=== PATIENT | female | born 1965 | race African-American/Black ===

== ENCOUNTER 2020-03-20 10:06 | Emergency (ER) | payer OTHER, SELFPAY ==
[2020-03-20 10:21] VITALS: BP 138/81; PULSE 79; RESP 16; TEMP 36.2; O2SAT 99
--- NOTE | 2020-03-20 10:29 | ED.GENADULT ---
HPI - General Adult General Chief complaint: Nausea/Vomiting/Diarrhea Stated complaint: abd pain/vomiting/diarrhea Time Seen by Provider: 03/20/20 10:34 Source: patient Mode of arrival: ambulatory Limitations: no limitations History of Present Illness HPI narrative: 54-year-old female patient presents to the [facility] with complaints of nausea vomiting and diarrhea that started yesterday. Patient states that she is a diabetic but is not insulin-dependent. Patient states that she threw up last night and was not able to keep any of her dinner down last night and this morning she tried to eat some oatmeal and threw that back up this morning as well. Patient states she has been belching a lot. Denies any abdominal pain. Denies any fevers. Patient states she has had a little bit of diarrhea as well. Patient denies any coughing or shortness of breath. Patient states that she has had issues with acid reflux before in the past and did have an endoscopy back in September and was prescribed omeprazole. Patient states that she ran out of refills so she stopped taking it. Patient states that she did take her sugars yesterday and it was 104 110 but denies taking her sugar today. Related Data Home Medications Medication Instructions Recorded Confirmed blood sugar diagnostic [OneTouch 03/20/20 03/20/20 Ultra Blue Test Strip] empagliflozin [Jardiance] mg 03/20/20 metformin mg 03/20/20 omeprazole 03/20/20 paroxetine HCl mg PO 03/20/20 progesterone micronized mg 03/20/20 rosuvastatin mg 03/20/20 Allergies Allergy/AdvReac Type Severity Reaction Status Date / Time naproxen Allergy Rash Verified 03/20/20 10:39 Review of Systems Review of Systems: Narrative: CONSTITUTIONAL: Denies fever, chills, or sweats. EYES: Denies visual changes, redness, or discharge. ENT: Denies rhinorrhea, congestion, sore throat, or otalgia. CARDIOVASCULAR: Denies chest pain, palpitations, or edema. Positive belching RESPIRATORY: Denies cough or dyspnea. GASTROINTESTINAL: Denies abdominal pain, positive nausea, vomiting, and diarrhea. GENITOURINARY: Denies dysuria or hematuria. SKIN: Denies rash or itching. MUSCULOSKELETAL: Denies back pain, joint pain, or myalgia. NEUROLOGIC: Denies headache, numbness, positive dizziness and weakness. PSYCHIATRIC: Denies anxiety or depression. PMFSH Comments At the time of my signature I agree with nursing past medical history, surgical, social, and family history. There is no relevant family history pertinent to the presenting complaint. Exam Narrative: Exam Narrative: GENERAL: Well-appearing, well-nourished, and in no acute distress. HEAD: Normocephalic, atraumatic. No tenderness noted to frontal maxillary sinuses on palpation EYES: PERRLA and EOMI. ENT: Nares clear, no rhinorrhea or epistaxis. Mucous membranes moist. Posterior pharynx with no erythema, tonsil nausea, exudates or lesions present. Bilateral TMs are clear no erythema or foreign bodies in the canal. NECK: Supple. No lymphadenopathy CHEST: Clear to auscultation. No respiratory distress. Patient able talk in clear complete sentences. No tripoding noted. HEART: Regular rate and rhythm. No murmur heard. Normal peripheral pulses. ABDOMEN: Soft, flat, nondistended. No guarding, rebound tenderness, or rigid. No pulsatilla masses. Bowel sounds present in all four quadrants. No organomegaly. Negative Cantu?s sign. No periumbicial tenderness. No Supra public tenderness or distension. Good femoral pulses bilaterally. No hernia noted. No scars or surface trauma. EXTREMITIES: Normal range of motion. No edema. SKIN: Warm, dry, no rash. NEURO: No focal deficits. Alert and oriented x3. Course Reevaluation(s) Reevaluation #1: Reevaluated patient after her urine dip had resulted. Discussed with her that her urine dip does show good amount of glucose as well as ketones in the urine which is concerning to me given her symptoms as well as her history of diabetes t
[2020-03-20 10:39] LABS: Glucose Point of Care 142 (65-105)
--- NOTE | 2020-03-20 10:46 | PC.NURSE ---
blood sugar 142. UA completed
[2020-03-20] MEDS: ONDANSETRON HCL ODT 4 MG TABLET PO (10:49)
== END 2020-03-20 11:02 | disposition short-term general hospital (02) ==
PROVIDERS: Emergency Provider Nurse Practitioner Family
DX: R11.2 Nausea with vomiting, unspecified (principal); E11.9 Type 2 diabetes mellitus without complications; Z79.84 Long term (current) use of oral hypoglycemic drugs
CPT/HCPCS: 81003; 99213; A9270; G0463

== ENCOUNTER 2020-03-20 11:17 | Emergency (ER) | payer OTHER, SELFPAY ==
--- NOTE | ~2020-03-20 | XR_ITS ---
EXAMINATION: XR abdomen obstructive series DATE: 03/20/2020 14:17 INDICATION: Vomiting TECHNIQUE: Upright and supine views of the abdomen were obtained. COMPARISON: None. FINDINGS: The bowel gas pattern is normal. There are no dilated loops of bowel. There is no free intr aperitoneal gas. The visualized lung bases are clear. IMPRESSION: 1. Nonobstructive bowel gas pattern Reviewed, dictated and finalized at location A.
[2020-03-20 11:26] VITALS: BP 148/82; PULSE 79; RESP 12; TEMP 36.4; O2SAT 100
[2020-03-20 11:34] LABS: Glucose Point of Care 125 (65-105)
--- NOTE | 2020-03-20 11:37 | ED.NAVMDI ---
HPI - Nausea/Vomiting/Diarrhea General Chief complaint: Nausea/Vomiting/Diarrhea Stated complaint: hyperglycemia Time Seen by Provider: 03/20/20 11:19 Source: RN notes reviewed History of Present Illness HPI Narrative: Patient presents to emergency department from urgent care for nausea vomiting diarrhea. Patient states symptoms began yesterday afternoon. States she is had several episodes of vomiting last night as well as this morning as well as 5 episodes of diarrhea yesterday and one episode this morning.. States she is a diabetic and had been concerned secondary to her diabetes. She gone to the urgent care today and was referred to the ER after a urine dip that showed ketones. Patient was given Zofran 4 mg at the urgent care. She denies any fevers or chills rhinorrhea sore throat cough shortness of breath abdominal pain or any other symptoms Related Data Home Medications Medication Instructions Recorded Confirmed blood sugar diagnostic [OneTouch 03/20/20 03/20/20 Ultra Blue Test Strip] empagliflozin [Jardiance] mg 03/20/20 metformin mg 03/20/20 omeprazole 03/20/20 paroxetine HCl mg PO 03/20/20 progesterone micronized mg 03/20/20 rosuvastatin mg 03/20/20 Allergies Allergy/AdvReac Type Severity Reaction Status Date / Time naproxen Allergy Rash Verified 03/20/20 10:39 Review of Systems Review of Systems: Narrative: Gen.: Denies fevers or chills ENT: Denies congestion Respiratory: Denies shortness of breath or cough CV: Denies chest pain or palpitations GI: Denies abdominal pain reports nausea, emesis or diarrhea denies burning, urgency, frequency or hematuria Musculoskeletal: Denies back pain or muscle pain Neuro: Denies numbness, tingling, weakness or focal weakness Skin: Denies rash Except as documented, all other systems reviewed and negative [facility] Past Medical History Medical History (Updated 03/20/20 @ 15:20 by Lukasz Ross DO) Diabetes mellitus Social History Social History (Updated 03/20/20 @ 11:38 by Lukasz Ross DO) Smoking status: Never smoker Gender identity (if verbalized by the patient): Female Exam Narrative: Exam Narrative: APPEARANCE: No acute distress, nontoxic, resting in bed EYES: EOMI HEENT: Normocephalic, atraumatic, TMs clear bilaterally, nares patent oral mucosa dry Neck: Supple, full range of motion without pain, no meningismus RESPIRATORY: No respiratory distress Clear to auscultation bilaterally with no rhonchi wheezing or rales. CARDIOVASCULAR: Regular rate and rhythm without murmurs rubs or gallops. ABDOMINAL: Soft, nontender, nondistended, no rebound or guarding MUSCULOSKELETAl: Moves all extremities. No clubbing, cyanosis or edema. NEURO: Awake and alert. Following commands, speech normal, no focal deficits SKIN:: Warm, dry. No rashes lesions or abrasions PSYCHIATRIC: Normal affect/mood, Course Course Emergency Course: Patient does complain of headache at this time states she is allergic to naproxen but can take ibuprofen Patient states she is feeling better at this time Discussed with patient results of workup and diagnosis. Discussed need for follow-up with primary care, proper use of medication, and reasons to return to the emergency department. Patient understands and agrees to current treatment plan Vital Signs Vital signs: Vital Signs Temperature 97.5 F L 03/20/20 11:26 Pulse Rate 79 03/20/20 11:26 Respiratory Rate 12 03/20/20 11:26 Blood Pressure 148/82 H 03/20/20 11:26 Pulse Oximetry 100 03/20/20 11:26 Temperature 97.5 F L 03/20/20 11:26 Pulse Rate 79 03/20/20 11:26 Respiratory Rate 12 03/20/20 11:26 Blood Pressure 148/82 H 03/20/20 11:26 Pulse Oximetry 100 03/20/20 11:26 MDM - Nausea/Vomiting/Diarrhea Lab Data Result diagrams: 03/20/20 11:45 03/20/20 13:15 Labs: Lab Results 03/20/20 03/20/20 03/20/20 Range/Units 11:25 11:45 11:45 WBC 8.3 (4.5-10.
[2020-03-20] MEDS: SODIUM CHLORIDE 0.9% IV 1,000 ML 999 ML IV CONT ×2 (11:44→13:12)
[2020-03-20 11:57] LABS: Basophils Absolute Auto 0.1 K/mm3 (0.0-0.1); Basophils Percent Auto 0.6 % (0.2-1.2); Eosinophils Percent Auto 0.2 % (0-4.4); Hematocrit 47.9 % (37.0-47.0); Immature Granulocyte Absolute 0.01 K/mm3 (0.00-0.031); Immature Granulocyte Percent A 0.1 % (0-0.5); Lymphocytes Absolute Auto 1.96 K/mm3 (0.9-3.2); Lymphocytes Percent Auto 23.7 % (18.3-44.2); Mean Corpuscular HGB Conc 31.3 g/dl (32-36); Mean Corpuscular Hemoglobin 27.5 pg (26-34); Mean Corpuscular Volume 87.9 fl (80-100); Mean Platelet Volume 12.2 fl (7.4-10.4); Monocytes Absolute Auto 0.3 K/mm3 (0.1-0.6); Monocytes Percent Auto 3.7 % (2.6-8.5); Neutrophils Absolute Auto 5.9 K/mm3 (1.3-6.7); Neutrophils Percent Auto 71.7 % (45.5-73.1); Platelet Count Result 245 k/mm3 (150-375); Red Blood Count 5.45 M/mm3 (4.2-5.4); Red Cell Distribution Width 13.1 % (11.5-14.5); White Blood Count 8.3 K/mm3 (4.5-10.0)
[2020-03-20 12:03] LABS: Add Urine Microscopic? YES; Appearance Urine Clear (Clear); Bilirubin Urine Negative (Negative); Blood Urine 1+ (Negative); Color Urine Straw (Yellow); Glucose Urine UA 3+ mg/dL (Negative); Ketones Urine 1+ mg/dL (Negative); Leukocyte Esterase Ur Negative LEU/UL (Negative); Mucus Urine Rare /lpf; Nitrate Urine Negative (Negative); Protein Urine Negative (Negative); RBC Urine 0-2 /hpf (0-2); Specific Grav Ur 1.032 (1.001-1.035); Squamous Epithelial Cell Urine Few /hpf (Few); Urobilinogen Urine Negative mg/dL (<2.0); WBC Urine 0-3 /hpf
[2020-03-20 13:36] LABS: Alanine Aminotransferase 15 U/L (4-35); Albumin Level 4.2 g/dL (3.5-5.1); Alkaline Phosphatase 71 U/L (38-126); Aspartate Amino Transferase 22 U/L (14-36); Bilirubin,Total 0.3 mg/dL (0.2-1.3); Blood Urea Nitrogen 8 mg/dL (7-17); Calcium 9.3 mg/dL (8.4-10.2); Carbon Dioxide 28 mmol/L (22-30); Chloride 105 mmol/L (98-107); Estimated CRCL calculation 102 ml/min; Estimated Glomerular Filt Rate > 60; Glucose 99 mg/dL (65-105); Lipase 63 U/L (23-300); Potassium 3.9 mmol/L (3.4-5.0); Sodium 138 mmol/L (137-145)
[2020-03-20] MEDS: ONDANSETRON INJ 4 MG/2 ML VIAL IV PUSH (13:44)
[2020-03-20] MEDS: KETOROLAC 30 MG/ML VIAL (*BKC) IV PUSH (14:46)
== END 2020-03-20 15:33 | disposition home or self-care (01) ==
PROVIDERS: Emergency Provider Emergency Medicine
DX: R11.2 Nausea with vomiting, unspecified (principal); R19.7 Diarrhea, unspecified; E11.9 Type 2 diabetes mellitus without complications; Z79.84 Long term (current) use of oral hypoglycemic drugs
CPT/HCPCS: 36415; 74019; 80053; 81001; 82948; 83690; 85025; 96361; 96374; 96375; 99284; J0131; J1885; J2405; J7030

== ENCOUNTER 2020-03-21 17:09 | Emergency (ER) | payer OTHER, SELFPAY ==
[2020-03-21 17:22] VITALS: BP 149/77; PULSE 14; RESP 14; TEMP 36.6; O2SAT 100
--- NOTE | 2020-03-21 17:23 | ED.ABDPAIN ---
HPI - Abdominal Pain General Chief Complaint: Dizziness <NELSY Pillai Last Filed: 03/21/20 19:11> Stated Complaint: Dizziness <NELSY Pillai Last Filed: 03/21/20 19:11> Time Seen by Provider: 03/21/20 17:11 <NELSY Pillai Last Filed: 03/21/20 19:11> Source: patient <NELSY Pillai Last Filed: 03/21/20 19:11> Mode of arrival: ambulatory <NELSY Pillai Last Filed: 03/21/20 19:11> Limitations: no limitations <NELSY Pillai Last Filed: 03/21/20 19:11> History of Present Illness HPI narrative: Patient is a 54-year-old female who presents to emergency department for evaluation of parietal headache since Sunday has also been having vomiting and diarrhea was evaluated in the emergency department yesterday and was prescribed nausea medication sent home patient notes she continues to have the parietal headache with some associated dizziness. Patient had antibiotic called in by primary care which she took 1 dose. Patient notes that her nausea is better with the medication patient also notes her diarrhea is improving. Patient denies URI symptoms head injury or trauma. Patient presents with normal gait no distress <NELSY Pillai Last Filed: 03/21/20 19:11> Related Data Home Medications: Home Medications Medication Instructions Recorded Confirmed blood sugar diagnostic [OneTouch 03/20/20 03/20/20 Ultra Blue Test Strip] empagliflozin [Jardiance] mg 03/20/20 metformin mg 03/20/20 omeprazole 03/20/20 paroxetine HCl mg PO 03/20/20 progesterone micronized mg 03/20/20 rosuvastatin mg 03/20/20 <NELSY Pillai Last Filed: 03/21/20 19:11> Allergies/Adverse Reactions: Allergies Allergy/AdvReac Type Severity Reaction Status Date / Time naproxen Allergy Rash Verified 03/21/20 17:26 <NELSY Pillai Last Filed: 03/21/20 19:11> Review of Systems Review of Systems: All systems reviewed & are unremarkable except as noted in HPI and below <NELSY Pillai Last Filed: 03/21/20 19:11> [facility] Past Medical History Medical History: Medical History Diabetes mellitus <Yasir Maxwell PA-C - Last Filed: 03/21/20 19:11> Social History Social History: Social History Smoking status: Never smoker Gender identity (if verbalized by the patient): Female <Yasir Maxwell PA-C - Last Filed: 03/21/20 19:11> Exam Narrative: Exam Narrative: GENERAL: Well-appearing, well-nourished, and in no acute distress. HEAD: Normocephalic, atraumatic. EYES: PERRLA and EOMI. ENT: Nares clear, no rhinorrhea or epistaxis. Mucous membranes moist. CHEST: Clear to auscultation. No respiratory distress. No wheezes rales or rhonchi HEART: Regular rate and rhythm. No murmur heard. Normal peripheral pulses. ABDOMEN: Soft, nontender, nondistended EXTREMITIES: Normal range of motion. No edema. SKIN: Warm, dry, no rash. NEURO: No focal deficits. Alert and oriented x3. Cranial nerves II through XII grossly intact PSYCH: Normal mood and affect. <Yasir Maxwell PA-C - Last Filed: 03/21/20 19:11> Course Course Emergency Course: Patient in the room at this time in no distress feeling better with medications and interventions <Yasir Maxwell PA-C - Last Filed: 03/21/20 19:11> Vital Signs Vital signs: Vital Signs Temperature 97.8 F 03/21/20 17:22 Pulse Rate 14 L 03/21/20 17:22 Respiratory Rate 14 03/21/20 17:22 Blood Pressure 149/77 H 03/21/20 17:22 Pulse Oximetry 100 03/21/20 17:22 Temperature 97.8 F 03/21/20 17:22 Pulse Rate 83 03/21/20 20:05 Respiratory Rate 12 03/21/20 20:05 Blood Pressure 129/86 03/21/20 20:05 Pulse Oximetry 99 03/21/20 20:05 <Yasir Maxwell PA-C - Last Filed: 03/21/20 19:11> [facility]
[2020-03-21 17:42] LABS: Basophils Percent Auto 0.5 % (0.2-1.2); Eosinophils Percent Auto 0.2 % (0-4.4); Hematocrit 44.4 % (37.0-47.0); Immature Granulocyte Absolute 0.01 K/mm3 (0.00-0.031); Immature Granulocyte Percent A 0.1 % (0-0.5); Lymphocytes Absolute Auto 1.98 K/mm3 (0.9-3.2); Lymphocytes Percent Auto 23.1 % (18.3-44.2); Mean Corpuscular HGB Conc 31.5 g/dl (32-36); Mean Corpuscular Hemoglobin 27.7 pg (26-34); Mean Corpuscular Volume 87.7 fl (80-100); Mean Platelet Volume 11.2 fl (7.4-10.4); Monocytes Absolute Auto 0.4 K/mm3 (0.1-0.6); Monocytes Percent Auto 4.3 % (2.6-8.5); Neutrophils Absolute Auto 6.2 K/mm3 (1.3-6.7); Neutrophils Percent Auto 71.8 % (45.5-73.1); Platelet Count Result 274 k/mm3 (150-375); Red Blood Count 5.06 M/mm3 (4.2-5.4); Red Cell Distribution Width 12.9 % (11.5-14.5); White Blood Count 8.6 K/mm3 (4.5-10.0)
[2020-03-21 17:54] LABS: Alanine Aminotransferase 15 U/L (4-35); Albumin Level 4.5 g/dL (3.5-5.1); Alkaline Phosphatase 68 U/L (38-126); Aspartate Amino Transferase 22 U/L (14-36); Bilirubin,Total 0.4 mg/dL (0.2-1.3); Blood Urea Nitrogen 7 mg/dL (7-17); Calcium 9.9 mg/dL (8.4-10.2); Carbon Dioxide 25 mmol/L (22-30); Chloride 102 mmol/L (98-107); Estimated CRCL calculation 103 ml/min; Estimated Glomerular Filt Rate > 60; Glucose 121 mg/dL (65-105); Potassium 3.4 mmol/L (3.4-5.0); Sodium 136 mmol/L (137-145)
[2020-03-21] MEDS: SODIUM CHLORIDE 0.9% IV 1,000 ML 999 ML IV CONT ×2 (18:05→18:43)
[2020-03-21] MEDS: KETOROLAC 30 MG/ML VIAL (*BKC) IV PUSH (18:05)
[2020-03-21] MEDS: PROCHLORPERAZINE EDISYLATE 10 MG/2 ML VIAL IV PUSH (18:07)
[2020-03-21 18:18] LABS: Beta-Hydroxybutyrate/Acetoacetate 1.77 mmol/L (0.02-0.27)
[2020-03-21 18:33] LABS: Add Urine Microscopic? YES; Appearance Urine Clear (Clear); Bilirubin Urine Negative (Negative); Blood Urine Negative (Negative); Color Urine Colorless (Yellow); Glucose Urine UA 3+ mg/dL (Negative); Ketones Urine 1+ mg/dL (Negative); Leukocyte Esterase Ur Negative LEU/UL (Negative); Nitrate Urine Negative (Negative); Protein Urine Negative (Negative); RBC Urine 0-2 /hpf (0-2); Specific Grav Ur 1.014 (1.001-1.035); Squamous Epithelial Cell Urine Occasional /hpf (Few); Urobilinogen Urine Negative mg/dL (<2.0); WBC Urine 0-3 /hpf
[2020-03-21] MEDS: MECLIZINE HCL 25 MG TABLET PO (18:43)
[2020-03-21 20:05] VITALS: BP 129/86; PULSE 83; RESP 12; O2SAT 99
== END 2020-03-21 20:05 | disposition home or self-care (01) ==
PROVIDERS: Emergency Medicine Emergency Medical Services; Emergency Provider Emergency Medicine
DX: R51 Headache (principal); E86.0 Dehydration; E11.9 Type 2 diabetes mellitus without complications; Z79.84 Long term (current) use of oral hypoglycemic drugs
CPT/HCPCS: 36415; 80053; 81001; 82010; 83735; 84100; 85025; 96361; 96374; 96375; 99284; A9270; J0131; J0780; J1200; J1885; J7030